=== PATIENT | female | born 1990 | race African-American/Black ===

== ENCOUNTER 2019-04-08 00:05 | Emergency (ER) | payer OTHER ==
[~2019-04-08] VITALS: Ht 149.9 cm; Wt 56.3 kg
[2019-04-08 00:11] VITALS: Ht 149.9 cm; Wt 56.3 kg
[2019-04-08] MEDS ORDERED: ACETAMINOPHEN 500 MG TAB PO STA (00:25)
--- NOTE | 2019-04-08 02:24 | ERD ---
ER Documentation Chief Complaint Chief Complaint FEVER, DIZZINESS X'S 1 WEEK HPI This is a 29-year-old female who is a 38 weeks who presents to the emergency room for evaluation of fever, sore throat, runny nose. Patient states that she has had a dry cough but denies any chest pain or abdominal pain or vag inal bleeding at this time. The patient came to the ER for further evaluation. ROS All systems reviewed and are negative except as per history of present illness. Allergies Allergies: Coded Allergies: No Known Allergy (Unverified , 04/08/19) PMhx/Soc Medical and Surgical Hx: pt denies Medical Hx, pt denies Surgical Hx Hx Alcohol Use: No Hx Substance Use: No Hx Tobacco Use: No Smoking Status: Never smoker Physical Exam Vitals Vital Signs Date Temp Pulse Resp B/P (MAP) Pulse Ox O2 O2 Flow FiO2 Time Delivery Rate 04/08/19 100.4 01:25 04/08/19 100.3 00:32 04/08/19 100.3 128 18 98/62 (74) 97 00:30 04/08/19 101.8 127 18 125/58 94 00:11 (80) Physical Exam Const: No acute distress Head: Atraumatic Eyes: Normal Conjunctiva ENT: Normal External Ears, Nose and Mouth. Neck: Full range of motion. No meningismus. Resp: Clear to auscultation bilaterally Cardio: Regular rate and rhythm, no murmurs Abd: Gravid abdomen, soft, non tender, non distended. Normal bowel sounds Skin: No petechiae or rashes Back: No midline or flank tenderness Ext: No cyanosis, or edema Neur: Awake and alert Psych: Normal Mood and Affect Results 24 hrs Laboratory Tests Test 04/08/19 01:26 Urine Color TRUDY Urine Clarity SLIGHTLY CLOUDY Urine pH 6.0 Urine Specific Imbler 1.023 Urine Ketones 2+ mg/dL Urine Nitrite NEGATIVE mg/dL Urine Bilirubin NEGATIVE mg/dL Urine Urobilinogen NEGATIVE mg/dL Urine Leukocyte Esterase TRACE Ann/ul Urine Microscopic RBC 1 /HPF Urine Microscopic WBC 16 /HPF Urine Squamous Epithelial Cells FEW /HPF Urine Bacteria FEW /HPF Urine Mucus MODERATE /HPF Urine Hemoglobin NEGATIVE mg/dL Urine Glucose 1+ mg/dL Urine Total Protein 1+ mg/dl Current Medications Medications Dose Sig/Dorothea Start Time Status Last (Trade) Ordered Route PRN Stop Time Admin Dose Reason Admin 1,000 mg ONCE STAT 04/08/19 DC 04/08/19 Acetaminophen PO 00:25 04/08/19 00:32 (Tylenol 00:27 Tab) Procedures/MDM This 29-year-old female presents to the emergency room for evaluation of fever, sore throat and runny nose. On my exam the patient was febrile, she had no signs of a peritonsillar abscess. Urinalysis does show some white blood cells in the urine which is likely contaminated specimen. The patient is negative for influenza, chest x-ray shows possible viral infection. The patient likely has a viral infection was given Tylenol, and is not afebrile. She will not be cleared from the emergency room will be sent up to labor and delivery Departure Diagnosis: Primary Impression: Fever Condition: Stable GINA DOMINGUEZ DO Apr 08, 2019 02:24
[2019-04-08 02:38] VITALS: BP 107/69; PULSE 112; RESP 18
[2019-04-08] MEDS ORDERED: FOLI0.4T2 PO (03:10)
[2019-04-08] MEDS ORDERED: PREN-93 PO (03:10)
== END 2019-04-08 02:38 | disposition home or self-care (01) ==
LOC: E/R 00:05
DX: O99.89 Other specified diseases and conditions complicating pregnancy, childbirth and the puerperium (principal); R50.9 Fever, unspecified; Z3A.38 38 weeks gestation of pregnancy
CPT/HCPCS: 71045; 81001; 87400; Z7502; Z7610

== ENCOUNTER 2019-04-08 02:51 | Inpatient (IN) | payer OTHER ==
[~2019-04-08] VITALS: Ht 149.9 cm; Wt 56.7 kg
[2019-04-08] MEDS ORDERED: FOLI0.4T2 PO (03:10)
[2019-04-08] MEDS ORDERED: PREN-93 PO (03:10)
[2019-04-08 03:11] VITALS: Ht 149.9 cm; Wt 56.7 kg
[2019-04-08 03:15] VITALS: BP 99/57; PULSE 118; RESP 20
[2019-04-08] MEDS ORDERED: CEFTRIAXONE 1 GM/50 ML (PMX) 50 ML IVPB ONE (04:00)
[2019-04-08] MEDS: SOD CHLORIDE 0.9% 1,000 ML IV SCH ×2 (04:12→12:00)
--- NOTE | 2019-04-08 05:12 | HP ---
Date/Time of Note Date/Time of Note DATE: 04/08/19 TIME: 05:09 OB - History Hx of Present Chief Complaint: feer, headache, Estimated Due Date: Apr 21, 2019 : 1 Para: 0 Care: Good Care Past Family/Social History * Past Medical, Surgical, Family and Obstetric Histories reviewed from chart. OB Admission Exam Vital Signs Vital Signs Vital Signs Date Temp Pulse Resp B/P (MAP) Pulse Ox O2 O2 Flow FiO2 Time Delivery Rate 04/08/19 98.5 118 20 99/57 (71) 96 Room Air 03:15 Physical Exam Heart: Rhythm Normal Abdomen: WNL Extremities: Normal Cervical Dilatation: 3cm Effacement: Other (80) Station: 0 Membranes: Intact Decelerations: Variable Decelerations Varibility: Moderate Contractions on Admission: 6-10 Minutes Apart Intensity: Mild Last 72 hours Lab Results CBC & BMP 04/08/19 04:00 Liver Function Test 04/08/19 04:00 Alanine Aminotransferase (ALT/SGPT) 28 Albumin 3.8 Alkaline Phosphatase 229 H Aspartate Amino Transf (AST/SGOT) 29 Direct Bilirubin 0.00 Total Protein 7.0 OB Assessment/Plan Reason for admission: other (IUP 38 weeks, heart tones variables, sve 3/80/0, EFW 3300 gr) Plan: Other (admit to L@D) SHA GRANDE MD Apr 08, 2019 05:12
[2019-04-08] MEDS ORDERED: LACTATED RINGER'S 1,000 ML IV PRN (05:18)
[2019-04-08] MEDS ORDERED: CARBOPROST 250 MCG INJ IM PRN ×2 (05:30→14:30)
[2019-04-08] MEDS ORDERED: MISOPROSTOL 200 MCG TAB PR PRN ×2 (05:30→14:30)
[2019-04-08] MEDS ORDERED: BUTORPHANOL 2 MG INJ IV PRN ×2 (05:30)
[2019-04-08] MEDS ORDERED: METHYLERGONOVINE 0.2 MG INJ IM PRN ×2 (05:30→14:30)
[2019-04-08] MEDS ORDERED: OXYTOCIN 30 UNITS/LR 500 ML IV SCH ×2 (05:30)
[2019-04-08] MEDS ORDERED: OXYTOCIN 30 UNITS/LR 500 ML IV PRN ×2 (05:30→14:30)
[2019-04-08] MEDS ORDERED: LIDOCAINE 1% (MPF) 30 ML INJ INJ PRN (05:30)
[2019-04-08] MEDS ORDERED: IBUPROFEN 600 MG TAB PO PRN (05:30)
--- NOTE | 2019-04-08 05:36 | TRIAGE ---
OB Triage Datetime Report Generated by CPN: 04/08/2019 05:35 Datetime: 04/08/2019 05:07 Vaginal Exam Dilatation (cms): 3.5 Effacement (%): 90 Station: 0 Exam By: dr galstyan Membrane Status: Bulging Datetime: 04/08/2019 05:00 Labor Evaluation Frequency: 1.5-5 Monitor Mode: External Duration (sec)2399: 30-90 Quality: Mild Pattern: Normal: <= 5 Contractions in 10 Minutes Resting Tone Macdona: Relaxed Heart Rate FHR Baseline Rate: 150 Monitor Mode: External US Variability: Moderate 6-25 bpm Accelerations: 15X15 Decelerations: Late; Variable Category: Category II Datetime: 04/08/2019 04:36 Vaginal Exam Dilatation (cms): 1.5 Effacement (%): 70 Station: -2 Exam By: marco Datetime: 04/08/2019 04:24 Comments: U/S TECH AT BEDSIDE Datetime: 04/08/2019 04:00 Labor Evaluation Frequency: 1-5 Monitor Mode: External Duration (sec)2399: 40-130 Quality: Mild Pattern: Normal: <= 5 Contractions in 10 Minutes Resting Tone Macdona: Relaxed Heart Rate FHR Baseline Rate: 155 Monitor Mode: External US Variability: Moderate 6-25 bpm Accelerations: 15X15 Decelerations: Late; Variable Category: Category II Datetime: 04/08/2019 03:26 Vaginal Exam Dilatation (cms): 1.5 Effacement (%): 70 Station: -2 Exam By: marco Membrane Status: Intact Vaginal Bleeding: Normal Show Cervix, Consistency: Soft Cervix, Position: Anterior Presentation 'A': Cephalic Datetime: 04/08/2019 03:07 Assessment Type: Triage Maternal Assessment Level of Consciousness: Fully Conscious DTR's/Clonus: DTRs 2+; No Clonus Headache: Denies Blurred Vision: No Respiratory Effort: Unlabored; Regular Rhythm; Equal Expansion Breath Sounds, Left: Clear and Equal Breath Sounds, Right: Clear and Equal Nausea/Vomiting: Denies RUQ Epigastric Pain: Denies Lower Extremities Edema: None Degree: None Upper Extremities Edema: None Degree: None Facial Edema: None Fall Risk Assessment History of Falling: (0) No Secondary Diagnosis: (0) No Ambulatory Aid: (0) Bedrest/Nurse Assist IV Therapy: (0) No Gait: (0) Normal/Bedrest/Immobile Mental Status: (0) Oriented to Own Ability Fall Score: 0 Fall Risk Score Definition: No Risk: No action required Comment: sent up from the er with c/o fever/cold symptoms, n/v x 2 episodes and diarrhea x 3 episod es since yesterday. influenza cultures and chest xray were done in er. denies any recent travel but d id go tot the [employer] [facility] in oct 2018. Datetime: 04/08/2019 03:05 Time of Arrival: 04/08/2019 02:43 EGA: 38.0 Arrived By: Wheelchair Arrived From: Emergency Dept Chief Complaint: fever, sore throat, n/v/d Movement: Present Contractions: Irregular Time Contractions Began: 04/07/2019 19:00 Contractions: 20-30 min Rupture of Membranes: Denies Vaginal Bleeding: None Vaginal Discharge: Denies Recent Sexual Intercouse: Denies Abdominal Trauma: Not Applicable Patient Complaints: Nausea; Vomiting; Fever; Runny Nose; Dizziness Time Provider Notified: 04/08/2019 03:39 Provider Notified: denia Initial Plan: nst, vs Datetime: 04/08/2019 03:02 Maternal Assessment Level of Consciousness: Fully Conscious DTR's/Clonus: DTRs 2+ Headache: Denies Blurred Vision: No Nausea/Vomiting: Hx of Nausea/Vomiting RUQ Epigastric Pain: Denies Facial Edema: None Pain Assessment Pain Scale: 4 Pain Presence: Intermittent Pain Type: Contraction Pain Location: Abdomen Pain Goal: 0 Pain Relief Measures: Comfort Measures
--- NOTE | 2019-04-08 05:58 | PN ---
Date/Time of Note Date/Time of Note DATE: 04/08/19 TIME: 05:56 OB Subjective Subjective Subjective c/o contractionts pain /10 OB Objective Heart: Rhythm Normal Abdomen: WNL Cervical Dilatation: 3cm Effacement: Other (80) Station: 0 Membranes: Ruptured Amniotic Fluid: Clear Contractions on Admission: 6-10 Minutes Apart Intensity: Moderate OB Assessment/Plan Reason for admission: active labor Induction Method: other (AROM clear, FSC inserted, expected management) SHA GRANDE MD Apr 08, 2019 05:58
--- NOTE | 2019-04-08 07:40 | PREAC ---
Date/Time of Note Date/Time of Note DATE: 04/08/19 TIME: 07:39 Anesthesia Eval and Record Evaluation Time Pre-Procedure Interview DATE: 04/08/19 TIME: 07:39 Age 29 Sex female NPO: 8 hrs Preoperative diagnosis iup at 38 weeks Planned procedure labor epidural Past Medical History Past Medical History: None Surgery & Anesthesia Issues No known issue Meds Anticoagulation: No Beta Devon within 24 hr: No Reason Beta Devon not given: Pt. not on B-Devon Reported Medications Folic Acid* (Folic Acid*) 0.4 Mg Tablet, 0.4 MG PO DAILY, TAB 04/08/19 Vit No.124/Iron/FA ( Vitamin Tablet) 1 Each Tablet, 1 EACH PO DAILY, TAB 04/08/19 Current Medications Sodium Chloride 1,000 ml @ 125 mls/hr Q8H IV Last administered on 04/08/19at 04:12; Admin Dose 125 MLS/HR; Start 04/08/19 at 04:00 Lactated Ringer's 1,000 ml @ 125 mls/hr Q8H IV ; Start 04/08/19 at 05:18 Butorphanol Tartrate (Stadol) 1 mg Q2H PRN IV .PAIN SCALE 1-5; Start 04/08/19 at 05:30 Butorphanol Tartrate (Stadol) 2 mg Q2H PRN IV .PAIN SCALE 6-10; Start 04/08/19 at 05:30 Lidocaine (Xylocaine 1% (Mpf)) 30 ml ONCE PRN INJ .EPISIOTOMY; Start 04/08/19 at 05:30 Oxytocin/Lactated Ringer's 500 ml @ 500 mls/hr ONCE POST IV ; Start 04/08/19 at 05:30 Oxytocin/Lactated Ringer's 500 ml @ 125 mls/hr POST IV ; Start 04/08/19 at 05:30 Ibuprofen (Motrin) 600 mg ONCE PRN PO .PAIN 1-5; Start 04/08/19 at 05:30 Lactated Ringer's 1,000 ml @ 2,000 mls/hr Q30M PRN IV .ANESTHESIA Last administered on 04/08/19at 07:32; Admin Dose 2,000 MLS/HR; Start 04/08/19 at 05:18 Oxytocin/Lactated Ringer's 500 ml @ 0 mls/hr ONCE PRN IV .VAGINAL BLEEDING; S tart 04/08/19 at 05:30 Methylergonovine Maleate (Methergine) 0.2 mg ONCE PRN IM .VAGINAL BLEEDING; St art 04/08/19 at 05:30 Carboprost Tromethamine (Hemabate) 250 mcg ONCE PRN IM .VAGINAL BLEEDING; Start 04/08/19 at 05:30 Misoprostol (Cytotec) 1,000 mcg ONCE PRN WI .VAGINAL BLEEDING; Start 04/08/19 at 05:30 Meds reviewed: Yes Allergies Coded Allergies: No Known Allergy (Unverified , 04/08/19) Allergies Reviewed: Yes Labs/Studies Labs Reviewed: Reviewed by anesthesiologist Result Diagram: 04/08/19 0400 04/08/19 0400 Laboratory Tests 04/08/19 04:00 Blood Bank Test 04/08/19 04:00 Antibody Screen NEGATIVE Blood Type B POSITIVE Rh Immune Globulin Candidate NO test: Positive Pre-procedure Exam Last vitals Vital Signs Date Temp Pulse Resp B/P (MAP) Pulse Ox O2 O2 Flow FiO2 Time Delivery Rate 04/08/19 98.5 118 20 99/57 (71) 96 Room Air 03:15 Airway: Adequate mouth opening, Adequate thyromental dist Mallampati: Mallampati II Teeth: Normal Lung: Normal Heart: Normal ASA Physical Status ASA physical status: 2 Emergency: None Planned Anesthetic Neuraxial: Epidural Planned Pain Management Parenteral pain med Pre-operative Attestations Prior to commencing anesthesia and surgery, the patient was re-evaluated, there was verification of: *The patient's identity *The results of appropriate recent lab work and preoperative vital signs *The above evaluation not changing prior to induction *Anesthetic plan, risk benefits, alternative and complications discussed with patient/family; questions answered; patient/family understands, accepts and wishes to proceed. CONSTANCE DOLAN Apr 08, 2019 07:40
[2019-04-08] MEDS ORDERED: FENTAnyl 2MCG/ML-ROPIV 0.2% 100 ML ONE (07:46)
[2019-04-08] MEDS ORDERED: DEXTROSE 5%-LR 1,000 ML IV ONE (08:10)
[2019-04-08] MEDS ORDERED: DIPHENHYDRAMINE 50 MG INJ IV PRN ×2 (08:30→11:30)
[2019-04-08] MEDS ORDERED: FENTAnyl 2MCG/ML-ROPIV 0.2% 100 ML BAG EPI SCH (08:30)
[2019-04-08] MEDS ORDERED: ONDANSETRON 4 MG INJ IV PRN ×2 (08:30→11:30)
[2019-04-08] MEDS ORDERED: NALOXONE (0.4 MG/ML) INJ IV PRN ×2 (08:30→11:30)
[2019-04-08] MEDS ORDERED: CEFAZOLIN 2 GM/50 ML (PMX) 50 ML IVPB SCH (09:00)
[2019-04-08] MEDS: SODIUM CHLORIDE 0.9% 1L IRRIG IRR SCH ×2 (09:00→17:38)
[2019-04-08] MEDS ORDERED: CEFAZOLIN 2 GM/50 ML (PMX) 50 ML IVPB ONE (09:03)
[2019-04-08] MEDS ORDERED: FENTAnyl 50 MCG/ML VIAL ONE (09:55)
[2019-04-08] MEDS ORDERED: LIDOCAINE 1.5%/EPI MPF (SDV) 30 ML VIAL ONE (10:07)
[2019-04-08] MEDS ORDERED: DEXAMETHASONE 4 MG/ML 1 ML INJ ONE (10:08)
[2019-04-08] MEDS ORDERED: morphine SULFATE/PF (10 MG/10 ML) INJ ONE (10:18)
--- NOTE | 2019-04-08 11:14 | OPPN ---
Date/Time of Note Date/Time of Note DATE: 04/08/19 TIME: 11:09 Operative Report Planned Procedure Procedure date Apr 08, 2019 Procedure(s) primary c/s Performed by see signature line Stratigrapher: MARITZA OLIVAS M.D. 2nd Stratigrapher none Anesthesiologist: CONSTANCE DOLAN Pre-procedure diagnosis IUP 38w CAT II [id number] Anesthesia Type: [id number] spinal Post-Procedure Post-procedure diagnosis delivered normal female with relatively tight nuchal cord fluid cleat Findings Live Baby [f], Apgars [8] and [9], weight [6], position [l0a], [vx] presentation x1 nuchal cord[]cord. Estimated Blood Loss: 400 - 500 mls Specimen(s) none Grafts/Implant(s) none Complication(s) none TORI ZAZUETA MD Apr 08, 2019 11:13
[2019-04-08] MEDS ORDERED: ZOLPIDEM 5 MG TAB PO PRN ×2 (11:30→14:30)
[2019-04-08] MEDS ORDERED: HYDROmorphONE 0.5 MG/0.5 ML SYG IV PRN ×2 (11:30)
[2019-04-08] MEDS ORDERED: AZITHROMYCIN 500MG/NS (PMX) 250 ML IVPB ONE (11:30)
[2019-04-08] MEDS: LACTATED RINGER'S 1,000 ML IV SCH ×3 (12:22→18:08)
[2019-04-08] MEDS: KETOROLAC 30 MG INJ IV PRN ×2 (13:44→22:42)
[2019-04-08 14:25] VITALS: BP 97/48; PULSE 108; RESP 16
[2019-04-08] MEDS ORDERED: BENZOCAINE 20% 56 ML SPRAY TOP PRN (14:30)
[2019-04-08] MEDS ORDERED: WITCH HAZEL/GLYCERIN PAD PR PRN (14:30)
[2019-04-08] MEDS ORDERED: OXYCODONE/ASPIRIN (4.88/325) TAB PO PRN (14:30)
[2019-04-08 15:00] VITALS: BP 98/50; PULSE 100; RESP 16
[2019-04-08] MEDS: IBUPROFEN 600 MG TAB PO SCH (17:37)
[2019-04-08] MEDS: LANOLIN HPA 1 PKT TOP PRN (19:23)
[2019-04-08 20:30] VITALS: BP 106/54; PULSE 93; RESP 18
[2019-04-08] MEDS: SENNA/DOCUSATE NA (8.6MG/50MG) TAB PO SCH (21:00)
[2019-04-09] VITALS: BP 92/54; PULSE 90; RESP 17
[2019-04-09] MEDS: LACTATED RINGER'S 1,000 ML IV SCH (03:03)
[2019-04-09 03:21] VITALS: BP 98/50; PULSE 100; RESP 18
[2019-04-09] MEDS: IBUPROFEN 600 MG TAB PO SCH ×5 (06:00→23:35)
[2019-04-09 08:00] VITALS: BP 90/55; PULSE 82; RESP 16
[2019-04-09] MEDS: KETOROLAC 30 MG INJ IV PRN (08:12)
--- NOTE | 2019-04-09 10:57 | PAC ---
Date/Time of Note Date/Time of Note DATE: 04/09/19 TIME: 10:57 Post-Anesthesia Notes Post-Anesthesia Note Last documented vital signs Vital Signs Date Temp Pulse Resp B/P (MAP) Pulse Ox O2 O2 Flow FiO2 Time Delivery Rate 04/09/19 97.9 82 16 90/55 (67) 98 Room Air 08:00 Activity: WNL Respiratory function: WNL Cardiovascular function: WNL Mental status: Baseline Pain reasonably controlled: Yes Hydration appropriate: Yes Nausea/Vomiting absent: Yes CONSTANCE DOLAN Apr 09, 2019 10:57
[2019-04-09] MEDS: SENNA/DOCUSATE NA (8.6MG/50MG) TAB PO SCH ×2 (11:41→20:49)
[2019-04-09] MEDS: OXYCODONE/ASPIRIN (4.88/325) TAB PO PRN ×2 (15:24→20:49)
[2019-04-09 15:51] VITALS: BP 93/60; PULSE 71; RESP 18
[2019-04-09 19:40] VITALS: BP 120/62; PULSE 80; RESP 18
[2019-04-09] MEDS: LANOLIN HPA 1 PKT TOP PRN (23:35)
--- NOTE | 2019-04-09 23:48 | EN ---
Date/Time of Note Date/Time of Note DATE: 04/09/19 TIME: 23:45 Event Note Surgery Surgery Event Note vss afebrile CBC 12:03/09.230.7/173 lochia min calf neg stable post cs TORI ZAZUETA MD Apr 09, 2019 23:48
[2019-04-10 04:00] VITALS: BP 98/60; PULSE 63; RESP 20
[2019-04-10] MEDS: IBUPROFEN 600 MG TAB PO SCH ×4 (05:42→23:34)
--- NOTE | 2019-04-10 06:25 | OPR ---
DATE OF OPERATION: 04/08/2019 PREOPERATIVE DIAGNOSES: 38 weeks . POSTOPERATIVE DIAGNOSIS: Delivered normal female , 8 and 9, fluid was clear. PROCEDURE: Primary low transverse section. ANESTHESIA: Spinal. ANESTHESIOLOGIST: ____ SURGEON: Mateo Morales MD DESIGN TRANSFERRER: Nishant Wyman MD ESTIMATED BLOOD LOSS: 500 mL. PROCEDURE: Under proper induction of spinal anesthesia, the patient was placed in the frog position. Wade catheter was introduced into bladder under sterile condition. The patient was repositioned t o supine. Abdominal wall was prepped and draped in aseptic manner. A transverse incision was made a pproximately 2 fingers above the pubic rami. Incision was carried down through the subcutaneous tiss ue to the anterior recti fascia, which was incised transversely in length of the incision. Fascial f lap was created by blunt and sharp dissection of tendinous attachment to cephalad and to rectus muscl es were split. Peritoneal cavity was entered. Low portion of the uterus was exposed after bladder r etractor was introduced. A transverse incision was made above the uterovesical reflection. Incision was carried down layer by layer until reached the amniotic membrane, which was ruptured and revealed clear amniotic fluid in large amount due to the IUPC segment ____ female was ____ anterior po sition with a relatively tight nuchal cord, which was released and the mouth and nose were cleaned, d elayed the clamp done ____ handed to the respiratory care personnel for further care. 8 and 9 and baby was 6 pounds. Cord blood was obtained. Placenta was removed manually. Cavity was complete ly explored after the uterus was exteriorized. Uterine incision was closed with a #1 chromic catgut in continuous interlocking manner on the first layer, second layer using 0 chromic catgut including _ ___ into the abdominal cavity after the cavity was irrigated with water and sponge count ____ correct ____ rechecked the incisional site, which was intact. Parietal peritoneum was closed using 0 chromi c catgut in continuous manner, muscle closed with 0 chromic catgut in continuous manner. A piece of Surgicel was laid on top of the rectus muscle and fascia was closed using #1 Vicryl in continuous man ner in 2 segments. Subcutaneous tissue irrigated with water. This layer was approximated with a 2-0 plain in continuous manner after adequate hemostatic was secured. Skin closed with a 3-0 Monocryl i n subcuticular manner. Steri-Strip applied. Pressure dressing applied. Estimated blood loss approx imately 500 mL. The patient withstood procedure well and was sent to recovery room in stable conditi on. Urine output was approximately 100 mL during surgery and the uterine was clear. Dictated By: MATEO DENG/YAZMIN Conf#: [id number] DID#: [id number] CC: SHA GRANDE;*EndCC*
[2019-04-10 08:00] VITALS: BP 99/57; PULSE 74; RESP 18
[2019-04-10] MEDS ORDERED: DIPHTH/TET/ACEL PERTUSS (ADULT) 0.5 ML VIAL IM* ONE (09:00)
[2019-04-10] MEDS: SENNA/DOCUSATE NA (8.6MG/50MG) TAB PO SCH ×2 (09:42→20:47)
--- NOTE | 2019-04-10 10:28 | OPPN ---
Date/Time of Note Date/Time of Note DATE: 04/10/19 TIME: 10:27 Anesthesia Follow up Anesthesia Follow up Last documented vital signs Vital Signs Date Temp Pulse Resp B/P (MAP) Pulse Ox O2 O2 Flow FiO2 Time Delivery Rate 04/10/19 97.8 74 18 99/57 (71) 08:00 04/10/19 Room Air 04:00 04/09/19 98 08:00 Respiratory function: WNL Cardiovascular function: WNL Comments satisfactory main management with intrathecal duramorph analgesia. no complications noted. CONSTANCE DOLAN Apr 10, 2019 10:28
--- NOTE | 2019-04-10 12:54 | QN ---
Documentation Comment c/o coughing with phlegm vss afebrile had b.m abdomen soft wounf dry calf neg for tenderness urine culture neg A s/p P c/s #2 URI P antitussive TORI ZAZUETA MD Apr 10, 2019 12:54
[2019-04-10] MEDS ORDERED: PROMETHAZINE/DM (CUP) PO PRN (13:00)
[2019-04-10 16:00] VITALS: BP 111/65; PULSE 65; RESP 19
[2019-04-10] MEDS: OXYCODONE/ASPIRIN (4.88/325) TAB PO PRN (16:30)
[2019-04-10 19:20] VITALS: BP 106/65; PULSE 61; RESP 18
[2019-04-11 04:04] VITALS: BP 99/59; PULSE 68; RESP 20
[2019-04-11] MEDS: IBUPROFEN 600 MG TAB PO SCH ×3 (05:43→17:46)
[2019-04-11 08:00] VITALS: BP 94/52; PULSE 63; RESP 18
[2019-04-11] MEDS: SENNA/DOCUSATE NA (8.6MG/50MG) TAB PO SCH (08:28)
[2019-04-11] MEDS ORDERED: PROMETHAZINE/DM (CUP) PO PRN (12:30)
[2019-04-11] MEDS: OXYCODONE/ASPIRIN (4.88/325) TAB PO PRN (13:19)
--- NOTE | 2019-04-11 17:25 | PD.PPDC ---
MOISTURE METER READER Discharge Instruction Diagnosis [id number] Final Diagnosis: Glwcn2g s/p primary c/s for CAT II Condition [id number] Patient Condition: Jvlty8w Stable Diet Cgrsm6Nw Diet: Awcvl2y Resume Regular Diet Activity/Restrictions Lnuut0Fu Activity: Fiezy3x May Shower Qcmye6Cd Restrictions: Atacy3v No Exercising No Lifting Minimize Stair-climbing No Sexual Activity Nothing in the Vagina No Tampons, douche Wound/Drain Care Instructions [id number] Wound/Drain Care Instructions: Bkivo3r Wash with soap and water Keep clean and dry Follow-up Follow-up with Physician: 2, Week/Weeks Return to clinic for Firmx0Bl [facility] [address] [facility] Instructions: Eavgk3m Fever greater than 101 Chills Worsening abdominal pain Excessive Vaginal Bleeding More than 2 pads per hour Unable to tolerate diet Scjnq8Va OB Instructions: Nvvoq4q Breast Tenderness Depression Blurried Vision Headache Xdvgv5Ax Surgical Instructions: Jnvot4z Incisional Drainage Incisional Redness TORI ZAZUETA MD Apr 11, 2019 17:25
--- NOTE | 2019-04-11 17:30 | DS ---
Date/Time of Note Date/Time of Note DATE: 04/11/19 TIME: 17:26 Obstetrical Discharge Record Final Diagnosis Final Diagnosis: Term delivered Other Final Diagnosis CAT II Section Section: Primary Complications Augmentation: No Induction: No Rupture of Membranes: No Condition on Discharge Physical Assessment Last Vitals: vss afebrile Voiding: Yes Bowel Movement: Yes Breast: Soft, non-tender Fundus: Firm Abdomen and Incision: soft wound dry Episiotomy: n/a Calf Tenderness: No Patient Condition: Stable TORI ZAZUETA MD Apr 11, 2019 17:30
--- NOTE | 2019-04-12 18:35 | DELSUM ---
Delivery Summary A-C Datetime Report Generated by CPN: 04/12/2019 18:35 DELIVERY PERSONNEL Microfilm Machine Operator: Clarissa, Ngoc MATERNAL INFORMATION Delivery Anesthesia: Epidural Medications in Delivery: SEE ANESTHESIA NOTES Delivery QBL (ml): 600 Placenta Cultured: No Maternal Complications: Other LABOR SUMMARY EDC: 04/22/2019 00:00 No. Babies in Womb: 1 Attempted: No Labor Anesthesia: Epidural LABOR INFORMATION Reason for Induction: Not Applicable Oxytocin: N/A Group B Beta Strep: Negative Antibiotics # of Doses: 1 Antibiotics Time of Last Dose: 04/08/2019 09:55 Steroids Given: None Reason Steroids Not Administered: Not Applicable MEMBRANES Membranes Rupture Method: Artificial Rupture of Membranes: 04/08/2019 05:45 Length of Rupture (hr): 4.52 Amniotic Fluid Color: Clear Amniotic Fluid Amount: Large Amniotic Fluid Odor: Normal STAGES OF LABOR Stage 3 hr: 0 Stage 3 min: 1 CSECTION DELIVERY Primary Indication: Nonreassuring Stat Other Primary Indication: MULTIPLE VARIABLE DECELERATIONS CSection Urgency: Emergency CSection Incidence: Primary Labor: Labor Elective: Nonelective CSection Incision: Lower Uterine Transverse BABY A INFORMATION Delivery Date/Time: 04/08/2019 10:16 Method of Delivery: Born in Route : No : N/A Forceps: N/A Vacuum Extraction: N/A Shoulder Dystocia : N/A SHOULDER DYSTOCIA BABY A Infant Delivery Date/Time: 04/08/2019 10:16 PRESENTATION/POSITION BABY A Presentation: Cephalic Cephalic Presentation: Vertex Vertex Position: Left Occipital Anterior Breech Presentation: N/A PLACENTA INFORMATION BABY A Placenta Delivery Time : 04/08/2019 10:17 Placenta Method of Delivery: Manual Removal Placenta Status: Delivered SCORES BABY A Heart Rate 1 min: >100 bpm Resp Effort 1 min: Good Cry Reflex Irritability 1 min: Cough/Sneeze/Pulls Away Muscle Tone 1 min: Active Motion Color 1 min: Blue/Pale Resuscitation Effort 1 min: Tactile Stimulation SCORE 1 MIN: 8 Heart Rate 5 min: >100 bpm Resp Effort 5 min: Good Cry Reflex Irritability 5 min: Cough/Sneeze/Pulls Away Muscle Tone 5 min: Active Motion Color 5 min: Body [place], Extremit Blue Resuscitation Effort 5 min: Tactile Stimulation SCORE 5 MIN: 9 INFORMATION BABY A Gestational Age at Delivery: 38.0 Gestational Status: Early Term- 37- 38.6 Weeks Infant Outcome : Liveborn Infant Condition : Stable Sex: Female IDENTIFICATION/MEDS BABY A ID Band Number: [id number] ID Band Location: Right Leg; Left Arm Sensor Applied: Yes Sensor Number: [id number] Sensor Location : Cord Clamp Vitamin K Given : Not Given Erythromycin Given: Not Given WEIGHT/LENGTH BABY A Infant Birthweight (gm): 2720 Infant Weight (lb): 6 Weight (oz): 0 Length (in): 18.00 Infant Length (cm): 45.72 CORD INFORMATION BABY A No. Cord Vessels: 3 Nuchal Cord : Around Neck x1, Loose Cord Blood Taken: Yes Infant Suction: Mouth; Nose ASSESSMENT BABY A Infant Complications: Multiple Variable Decels Physical Findings at Delivery: Within Normal Limits Respirations: Appears Normal Hand Bunch Maker/ALS Called : Yes Infant Care By: BELA ZACARIAS Transferred To: Remains with Mother
== END 2019-04-11 18:25 | disposition home or self-care (01) | DRG 788 ==
LOC: OBT 02:51 → L-D 02:51 → OBT 05:00 → L-D 09:41 → PP1 14:07
PROVIDERS: ADMIT Obstetrics & Gynecology; ATTEND Obstetrics & Gynecology
PROC: 10D00Z1 Extraction of Products of Conception, Low, Open Approach (ICD-10-PCS; principal; 2019-04-10)
DX: O75.82 Onset (spontaneous) of labor after 37 completed weeks of gestation but before 39 completed weeks gestation, with delivery by (planned) cesarean section (principal); Z3A.39 39 weeks gestation of pregnancy; Z37.0 Single live birth
CPT/HCPCS: 36415; 76818; 80053; 85025; 85610; 85730; 86592; 86850; 86900; 86901; 87086; 87340; 96360; 99464; G0463; J0456; J0690; J0696; J1100; J1885; J2274; J2405; J2590; J3010; J7030; J7120; J7121